=== PATIENT | male | born 1935 | race Caucasian/White ===

== ENCOUNTER 2018-03-14 09:52 | Day surgery (SDC) | payer OTHER ==
[~2018-03-14 09:52] MED LIST: BUPIVACAINE HCL 0.75% INJ/PF (7.5 MG/1 ML) 10 ML SDV OS PRN; CHONDR SU A NA/HYALUR INTRAOC KIT (SURGICARE) ONE; EPINEPHRINE INJ/PF 1 MG/1 ML AMPULE ONE; KETOROLAC TROMETHAMINE 0.45% 4 DROP/0.4 ML DROPERETTE OS PRN; LIDOCAINE 1% INJ-PF (10 MG/ML) 30 ML SDV ONE; LIDOCAINE 4% INJ/PF (40 MG/ML) 5 ML AMPUL OS PRN
[2018-03-14] MEDS: CYCLOPENTOLATE 0.2%/PHENYLEPHRINE 1% OPH SOLN 2 ML OS PRN ×3 (10:35→10:47)
[2018-03-14] MEDS: TETRACAINE HCL 0.5% OPH SOLN 0.6 ML DROPERETTE OS PRN ×2 (10:35→11:14)
[2018-03-14] MEDS: BESIFLOXACIN HCL 0.6% OPH SUSP 5 ML BOTTLE OS PRN ×3 (10:35→11:40)
[2018-03-14] MEDS: TROPICAMIDE 1% OPH SOLN 3 ML OS PRN ×3 (10:35→10:47)
[2018-03-14] MEDS ORDERED: FENTANYL CITRATE INJ/PF 100 MCG/2 ML AMPUL ONE (10:55)
[2018-03-14] MEDS ORDERED: MIDAZOLAM 2 MG/2 ML INJ ONE (10:55)
--- NOTE | 2018-03-14 12:14 | [facility] DISCHARGE SUMMARY E ---
[facility] Discharge Summary NAME: RAYMOND JOSEPH AGE: 82Y ADMITTED: 03/14/2018 DISCHARGED: 03/14/2018 HOSPITAL COURSE: The patient is an 82-year-old gentleman who underwent uneventful cataract extraction with intraocular lens implant left eye on 03/14/2018. He will be discharged to home. He is instructed to resume preoperative medications, to take Tylenol as needed for discomfort, to keep his eye shielded, to use ketorolac, Vigamox, and Predforte at 3 p.m. and 8 p.m., and to follow up in my office in 1 day. DICTATING PHYSICIAN: PAXTON SHEPHERD M.D. [id number] PHY#: [id number] ID: [id number] JOB#: [id number] ACCT: [id number] cc:PAXTON SHEPHERD M.D. >
--- NOTE | 2018-03-14 12:14 | [facility] OPERATIVE REPORT E ---
[facility] Operative Report NAME: RAYMOND JOSEPH AGE: 82Y DATE OF SURGERY: 03/14/2018 ROOM: PREOPERATIVE DIAGNOSIS: Cataract, left eye. POSTOPERATIVE DIAGNOSIS: Cataract, left eye. PROCEDURE PERFORMED: Phacoemulsification with posterior chamber intraocular lens, left eye. SURGEON: PAXTON SHEPHERD M.D. ANESTHESIA: Topical with MAC. PROCEDURE: The patient was brought to the Operating Room and placed on the operative table. Following tetracaine drops, topical anesthesia was administered. This consisted of instrument wipe pledgets soaked in a solution of 4% Xylocaine mixed with 0.75% Marcaine in a 1:2 ratio. A 2 x 1 cm pledget was placed in the superior fornix. A 1 x 1 cm pledget was placed in the inferior fornix. The eye was patched shut for 5 minutes. The patch was removed. The eye was sterilely prepped and draped in the usual manner. Lid speculum was placed in the eye. The pledgets were removed. 4-0 black silk sutures were placed around the superior and the inferior rectus muscles to be used as traction. A conjunctival peritomy was made at the 10 o'clock position. Hemostasis was obtained with bipolar cautery. A posterior limbal groove was created using a crescent knife and dissected anteriorly towards the cornea. A sharp point blade was used to create a paracentesis site at the 2 o'clock position. A 2.4 mm keratome was used to enter the anterior chamber through the groove. Viscoelastic was injected into the anterior chamber. An anterior capsulotomy was performed using Utrata forceps in a capsulorrhexis fashion. Hydrodissection and hydrodelineation were performed. Phacoemulsification was performed in sweblv-aig-gpclvys technique. A total of 1 minute phaco time was used. Following this, the I/A unit was used to remove residual cortex. Viscoelastic was injected into the capsular bag. Intraocular lens model SN60WF, 25.0 diopters, serial number [id number] was placed in the capsular bag. The I/A unit was used to remove residual viscoelastic. The wound was seen to be watertight under high and low pressure, and no sutures were placed. The intraocular lens was well centered. The pressure was adjusted in the eye to normal pressure. The 4-0 black silk sutures and lid speculum were removed. The eye was shielded after Besivance drops were placed. The patient tolerated the procedure well and was sent to the Recovery Room in good condition. Total of 0.5 mL of 1.5% phenylephrine mixed with 1% non-preserved lidocaine was injected in the eye following the incision. DICTATING PHYSICIAN: PAXTON SHEPHERD M.D. [id number] PHY#: [id number] ID: [id number] JOB#: [id number] ACCT: [id number] cc:PAXTON SHEPHERD M.D. >
[2018-03-14] MEDS ORDERED: LIDOCAINE 1%/PHENYLEPHRINE 1.5% 1 ML VIAL ONE (12:43)
== END 2018-03-14 12:25 | disposition home or self-care (01) ==
LOC: SC 09:52
PROVIDERS: ATTEND Ophthalmology
DX: H25.813 Combined forms of age-related cataract, bilateral (principal); H57.03 Miosis; E11.3292 Type 2 diabetes mellitus with mild nonproliferative diabetic retinopathy without macular edema, left eye; I10 Essential (primary) hypertension; E78.00 Pure hypercholesterolemia, unspecified; Z79.82 Long term (current) use of aspirin; Z79.899 Other long term (current) drug therapy; Z79.01 Long term (current) use of anticoagulants; Z79.84 Long term (current) use of oral hypoglycemic drugs
CPT/HCPCS: 66984; 82962; V2632; J2250; J3490 ×3; J0171; J2370; 142; J3010

== ENCOUNTER 2018-04-11 09:04 | Day surgery (SDC) | payer OTHER ==
[~2018-04-11 09:04] MED LIST changes: +BUPIVACAINE HCL 0.75% INJ/PF (7.5 MG/1 ML) 10 ML SDV OD PRN; -BUPIVACAINE HCL 0.75% INJ/PF (7.5 MG/1 ML) 10 ML SDV OS PRN; -CHONDR SU A NA/HYALUR INTRAOC KIT (SURGICARE) ONE; -EPINEPHRINE INJ/PF 1 MG/1 ML AMPULE ONE; +KETOROLAC TROMETHAMINE 0.45% 4 DROP/0.4 ML DROPERETTE OD PRN; -KETOROLAC TROMETHAMINE 0.45% 4 DROP/0.4 ML DROPERETTE OS PRN; -LIDOCAINE 1% INJ-PF (10 MG/ML) 30 ML SDV ONE; +LIDOCAINE 4% INJ/PF (40 MG/ML) 5 ML AMPUL OD PRN; -LIDOCAINE 4% INJ/PF (40 MG/ML) 5 ML AMPUL OS PRN; +MIDAZOLAM 2 MG/2 ML INJ ONE
[2018-04-11] MEDS ORDERED: EPINEPHRINE INJ/PF 1 MG/1 ML AMPULE ONE (09:29)
[2018-04-11] MEDS ORDERED: CHONDR SU A NA/HYALUR INTRAOC KIT (SURGICARE) ONE (09:29)
[2018-04-11] MEDS ORDERED: LIDOCAINE 1%/PHENYLEPHRINE 1.5% 1 ML VIAL ONE (09:30)
[2018-04-11] MEDS: TROPICAMIDE 1% OPH SOLN 3 ML OD PRN ×3 (09:42→10:05)
[2018-04-11] MEDS: CYCLOPENTOLATE 0.2%/PHENYLEPHRINE 1% OPH SOLN 2 ML OD PRN ×3 (09:42→10:04)
[2018-04-11] MEDS: BESIFLOXACIN HCL 0.6% OPH SUSP 5 ML BOTTLE OD PRN ×3 (09:43→10:58)
[2018-04-11] MEDS: TETRACAINE HCL 0.5% OPH SOLN 0.6 ML DROPERETTE OD PRN ×2 (09:43→10:16)
--- NOTE | 2018-04-11 11:19 | [facility] OPERATIVE REPORT E ---
[facility] Operative Report NAME: RAYMOND JOSEPH AGE: 82Y DATE OF SURGERY: 04/11/2018 ROOM: PREOPERATIVE DIAGNOSIS: Cataract, right eye. POSTOPERATIVE DIAGNOSIS: Cataract, right eye. PROCEDURE PERFORMED: Complex cataract extraction with intraocular lens, right eye. The indications for complex were pupil dilation requiring the use of Malyugin ring. SURGEON: PAXTON SHEPHERD M.D. ANESTHESIA: Topical with MAC. INDICATIONS FOR SURGERY: Difficulty with words on TV. Best corrected visual acuity 20/50. PROCEDURE: The patient was brought to the operating room and placed on the operating table. Topical anesthesia was administered. This consisted of instrument wipe pledgets soaked in a solution of 4% Xylocaine mixed with 0.75% Marcaine in a 1:2 ratio. A 2 x 1 cm pledget was placed in the superior fornix. A 1 x 1 cm pledget was placed in the inferior fornix. The eye was patched shut for 5 minutes. The patch and pledgets were removed. The eye was sterilely prepped and draped in the usual manner. A lid speculum was placed in the eye. A 4-0 black silk suture was placed around the superior and inferior rectus muscles to use as traction. A conjunctival peritomy was made at the 10 o'clock position. Hemostasis was attained with bipolar cautery. A posterior limbal groove was created using a crescent knife and dissected anteriorly towards the cornea. A sharp point blade was used to create a paracentesis site at the 2 o'clock position. A 2.4 mm keratome was used to enter the anterior chamber through the groove. Then, 0.5 mL of 1% nonpreserved lidocaine was injected into the anterior chamber. Viscoelastic was injected into the anterior chamber. Pupil dilation was approximately 4.5 mm. A Malyugin Ring was placed stabilizing the iris. An anterior capsulotomy was performed using Utrata forceps in a capsulorrhexis fashion. Hydrodissection and hydrodelineation were performed. Phacoemulsification was performed in a dajree-isn-fuvyfrx technique. Total phaco time was 1 minute 1 second. Following this, the I/A unit was used to remove residual cortex. Viscoelastic was injected into the capsular bag. Intraocular lens model SN60WF, 23.5 diopters, serial number [id number], was placed in the capsular bag. The Malyugin ring haptics were removed and the ring was removed from the eye. The I/A unit was used to remove residual viscoelastic. The wound was seen to be watertight under high and low pressure and no sutures were placed. The 4-0 black silk sutures and lid speculum were removed. The eye was shielded after Besivance drops were placed. The patient tolerated the procedure well and was sent to the recovery room in good condition. DICTATING PHYSICIAN: PAXTON SHEPHERD M.D. DICTATING PHYSICIAN: PAXTON SHEPHERD M.D. [id number] PHY#: [id number] ID: [id number] JOB#: [id number] ACCT: [id number] cc:PAXTON SHEPHERD M.D. >
--- NOTE | 2018-04-11 11:23 | [facility] DISCHARGE SUMMARY E ---
[facility] Discharge Summary NAME: RAYMOND JOSEPH AGE: 82Y ADMITTED: 04/11/2018 DISCHARGED: 04/11/2018 FINAL DIAGNOSIS: Cataract, right eye. HOSPITAL COURSE: The patient is an 82-year-old gentleman who underwent uneventful complex cataract extraction with intraocular lens implant, right eye. He will be discharged to home. He was instructed to resume preoperative medications; to take Tylenol as needed for discomfort; to keep his eye shielded; to use Pred Forte, Ilevro, and Vigamox at 3 p.m. and 8 p.m.; and to follow up in my office in 1 day. DICTATING PHYSICIAN: PAXTON SHEPHERD M.D. [id number] PHY#: [id number] ID: [id number] JOB#: [id number] ACCT: [id number] cc:PAXTON SHEPHERD M.D. >
[2018-04-11] MEDS ORDERED: ACETAMINOPHEN 325 MG TABLET PO PRN (11:41)
[2018-04-11] MEDS ORDERED: KETOROLAC TROMETHAMINE 0.45% 4 DROP/0.4 ML DROPERETTE OP PRN (11:42)
[2018-04-11] MEDS ORDERED: BRIMONIDINE TARTRATE 0.2% OPH SOLN 5 ML OD ONE (11:45)
== END 2018-04-11 11:57 | disposition home or self-care (01) ==
LOC: SC 09:04
PROVIDERS: ATTEND Ophthalmology
DX: H25.811 Combined forms of age-related cataract, right eye (principal); H57.03 Miosis; Z96.1 Presence of intraocular lens; I10 Essential (primary) hypertension; E11.9 Type 2 diabetes mellitus without complications; Z79.01 Long term (current) use of anticoagulants; Z79.84 Long term (current) use of oral hypoglycemic drugs; Z79.82 Long term (current) use of aspirin; Z79.899 Other long term (current) drug therapy
CPT/HCPCS: 66982; 82962; V2632; J2250; J3490 ×4; J0171; J2370; 142